=== PATIENT | female | born 1980 | race Caucasian/White ===

== ENCOUNTER → 2018-01-21 09:46 | Outpatient (CLI) | payer BC, SELFPAY ==
--- NOTE | 2018-01-21 10:21 | DI.MG.S_ITS ---
Patient Name: JACQUE HUMMEL date: 1980 Sex: F Attending Physician: Avinash Indications: Date: 01/21/2018 10:21 At the request of: MARIKA TIJERINA Procedure: MM diagnostic mammo BI BILATERAL DIGITAL DIAGNOSTIC MAMMOGRAM 3D/2D: 01/21/2018 CLINICAL: Palpable left breast lump. Baseline exam. No prior exams were available for comparison. The tissue of both breasts is extremely dense, which lowers the sensitivity of mammography. There is a triangular marker overlying the upper outer left breast at the site of the patient's palpable concern. There is no underlying mass or abnormality identified. There is an oval circumscribed mass measuring 1.0 cm in greatest diameter at the 9-10 o'clock position, 3- 4 cm from the nipple, at middle depth. No significant masses, calcifications, or other findings are seen in either breast. IMPRESSION: INCOMPLETE: NEEDS ADDITIONAL IMAGING EVALUATION 1) There is no underlying mass or abnormality identified in the upper outer left breast at the site of the patient's palpable concern. Recommend targeted left breast ultrasound for further evaluation. 2) Oval circumscribed mass measuring 1.0 cm in greatest diameter in the right breast at the 9-10 o'clock position, 3-4 cm from the nipple, at middle depth. Recommend targeted right breast ultrasound for further evaluation. This exam was interpreted at Station ID: [id number]. NOTE: For mammograms, a report in lay terms will be sent to the patient. Approximately 15% of breast malignancies will not be visualized mammographically. In the management of a palpable breast mass, a negative mammogram must not discourage biopsy of a clinically suspicious lesion. Electronically Signed By: George Munson M.D. ecl/:01/22/2018 12:13:17 Entry: - 01/22/2018 12:13:17 Continued Report - Page 2 of 2 Patient Name: JACQUE HUMMEL date: 1980 Sex: F Attending Physician: Avinash Indications: Date: 01/21/2018 10:21 At the request of: MARIKA TIJERINA Procedure: MM diagnostic mammo BI letter sent: Need Ultrasound ACR BI-RADS Category 0: Incomplete [id number]
== END ==
PROVIDERS: Family Provider Family Medicine; PCP Family Medicine; Visit Provider Family Medicine
DX: R92.8 Other abnormal and inconclusive findings on diagnostic imaging of breast (principal); N63.11 Unspecified lump in the right breast, upper outer quadrant
CPT/HCPCS: 77066; G0279

== ENCOUNTER → 2018-01-24 10:42 | Outpatient (CLI) | payer BC, SELFPAY ==
--- NOTE | 2018-01-24 10:43 | DI.US.S_ITS ---
ULTRASOUND OF LEFT BREAST: 01/24/2018 CLINICAL: Palpable left breast lump and focal pain. Comparison is made to exam dated: 01/21/2018 [facility]. Real-time and Doppler ultrasound of the left breast were performed. Medeiros scale images of the real-time examination were reviewed. Targeted ultrasound was performed in the region of the patient's reported palpable abnormality in the upper outer left breast. No underlying breast mass or abnormality is identified. IMPRESSION: NEGATIVE Negative ultrasound evaluation of the area of the patient's reported palpable abnormality in the upper outer left breast. Recommend clinical follow-up for further evaluation and management of the patient's reported symptoms. Return to annual screening mammography is also recommended. This exam was interpreted at Station ID: [id number]. Electronically Signed By: George Munson M.D. ecl/:01/24/2018 18:36:21 letter sent: Clinical Evaluation Ultrasound BI-RADS: 1 Negative
--- NOTE | 2018-01-24 10:43 | DI.US.S_ITS ---
ULTRASOUND OF RIGHT BREAST: 01/24/2018 CLINICAL: Patient returns for additional imaging over a suspected mass in the right breast. Comparison is made to exam dated: 01/21/2018 [facility]. Real-time and Doppler ultrasound of the right breast were performed. Medeiros scale images of the real-time examination were reviewed. There is a benign 0.8 cm x 0.6 cm x 0.5 cm lymph node in the right breast at 10 o'clock 6 cm from the nipple with normal hilar vascularity on Doppler ultrasound. This correlates with diagnostic mammography findings of 01/21/2018. IMPRESSION: BENIGN Benign intramammary lymph node correlating with finding observed on comparison diagnostic mammography of 01/21/2018. There is no sonographic evidence of malignancy in the right breast. Return to annual mammogram screening schedule is recommended. This exam was interpreted at Station ID: [id number]. Electronically Signed By: George Munson M.D. ecl/:01/24/2018 18:39:48 letter sent: Normal Exam Ultrasound BI-RADS: 2 Benign
== END ==
PROVIDERS: Family Provider Family Medicine; PCP Family Medicine; Visit Provider Family Medicine
DX: R92.8 Other abnormal and inconclusive findings on diagnostic imaging of breast (principal); N63.21 Unspecified lump in the left breast, upper outer quadrant; N63.11 Unspecified lump in the right breast, upper outer quadrant; N64.4 Mastodynia
CPT/HCPCS: 76642

== ENCOUNTER → 2019-09-05 14:56 | Outpatient (CLI) | payer OTHER, SELFPAY ==
--- NOTE | 2019-09-05 | DI.MG.S_ITS ---
BILATERAL DIGITAL SCREENING MAMMOGRAM 3D/2D WITH CAD: 09/05/2019 CLINICAL: Routine screening. Comparison is made to exam dated: 01/21/2018 [facility]. The tissue of both breasts is heterogeneously dense. This may lower the sensitivity of mammography. Current study was also evaluated with a Computer Aided Detection (CAD) system. No significant masses, calcifications, or other findings are seen in either breast. There has been no significant interval change. IMPRESSION: NEGATIVE There is no mammographic evidence of malignancy. A 1 year screening mammogram is recommended. This exam was interpreted at Station ID: [id number]. NOTE: For mammograms, a report in lay terms will be sent to the patient. Approximately 15% of breast malignancies will not be visualized mammographically. In the management of a palpable breast mass, a negative mammogram must not discourage biopsy of a clinically suspicious lesion. Electronically Signed By: Fabiano palma/benitez:09/05/2019 17:00:23 letter sent: Normal Exam ACR BI-RADS Category 1: Negative [id number]
== END ==
PROVIDERS: Family Provider Family Medicine; PCP Family Medicine; Referring Provider Family Medicine; Visit Provider Family Medicine
DX: Z12.31 Encounter for screening mammogram for malignant neoplasm of breast (principal)
CPT/HCPCS: 77063; 77067

== ENCOUNTER → 2020-08-26 08:44 | Outpatient (CLI) | payer OTHER, SELFPAY ==
[2020-08-26 10:58] LABS: Alanine Aminotransferase 21 IU/L (<35); Albumin Globulin Ratio 1.4 (1.0-2.8); Alkaline Phosphatase 71 U/L (38-126); Aspartate Aminotransferase 24 IU/L (14-36); Bilirubin Total 0.5 mg/dL (0.2-1.3); Blood Urea Nitrogen 11 mg/dL (7-17); Calcium 8.8 mg/dL (8.4-10.2); Carbon Dioxide 28 mmol/L (22-32); Chloride 107 mmol/L (98-107); Cholesterol 200 mg/dL (140-199); Estimated Glomerular Filt Rate > 60.0 mL/min (>60); Globulin 2.9 g/dL (1.7-4.1); Glucose 96 mg/dL (70-100); HDL Cholesterol 46 mg/dL (40-60); HEMOLYSIS < 15 (0-50); LDL Cholesterol Calculated 125 mg/dL (<100); Potassium 4.3 mmol/L (3.4-5.1); Sodium 136 mmol/L (137-145); Total Protein 6.9 g/dL (6.3-8.2); Triglycerides 145 mg/dL (35-150)
== END ==
PROVIDERS: Family Provider Family Medicine; PCP Family Medicine; Referring Provider Family Medicine; Visit Provider Family Medicine
DX: E66.9 Obesity, unspecified (principal)
CPT/HCPCS: 36415; 80053; 80061

== ENCOUNTER → 2020-09-06 12:11 | Outpatient (CLI) | payer OTHER, SELFPAY ==
--- NOTE | 2020-09-06 12:12 | DI.MG.S_ITS ---
BILATERAL DIGITAL SCREENING MAMMOGRAM 3D/2D WITH CAD: 09/06/2020 CLINICAL: Routine screening. Comparison is made to exams dated: 09/05/2019 mammogram and 01/21/2018 mammogram - [facility]. The tissue of both breasts is heterogeneously dense. This may lower the sensitivity of mammography. Current study was also evaluated with a Computer Aided Detection (CAD) system. No significant masses, calcifications, or other findings are seen in either breast. There has been no significant interval change. IMPRESSION: NEGATIVE There is no mammographic evidence of malignancy. A 1 year screening mammogram is recommended. This exam was interpreted at Station ID: [id number]. NOTE: For mammograms, a report in lay terms will be sent to the patient. Approximately 15% of breast malignancies will not be visualized mammographically. In the management of a palpable breast mass, a negative mammogram must not discourage biopsy of a clinically suspicious lesion. Electronically Signed By: Fabiano palma/benitez:09/06/2020 17:49:19 letter sent: Normal Exam ACR BI-RADS Category 1: Negative [id number]
--- NOTE | 2020-09-06 12:12 | DI.US.S_ITS ---
PROCEDURE: US PELVIC COMPLETE INDICATIONS: right pelvic pain, h/o ovarian cysts TECHNIQUE: Real-time scanning was performed of the pelvic organs, with image documentation. Additional endovaginal scanning was necessary due to incomplete visualization of the adnexal and endometrial structures by transabdominal scanning. COMPARISON: [facility], US, PELVIC COMPLETE, 02/16/2016, 9:09. FINDINGS: Uterus: Surgically absent Ovaries: Not well seen bilaterally. The appendix is not well seen sonographically Other: No pathologic free abdominal or pelvic fluid. IMPRESSION: The ovaries and appendix are not well visualized sonographically Dictated by: Van Berumen M.D. on 09/06/2020 at 16:20 Approved by: Van Berumen M.D. on 09/06/2020 at 16:21
== END ==
PROVIDERS: Family Provider Family Medicine; PCP Family Medicine; Referring Provider Family Medicine; Visit Provider Family Medicine
DX: Z12.31 Encounter for screening mammogram for malignant neoplasm of breast (principal); R10.2 Pelvic and perineal pain; Z90.710 Acquired absence of both cervix and uterus
CPT/HCPCS: 76830; 76856; 77063; 77067

== ENCOUNTER → 2021-11-04 08:55 | Outpatient (CLI) | payer OTHER, SELFPAY ==
[2021-11-04 11:37] LABS: COVID19 -Nasal RAPID Negative (Negative)
== END ==
PROVIDERS: Family Provider Family Medicine; PCP Family Medicine; Visit Provider Family Medicine Sleep Medicine
DX: Z20.822 Contact with and (suspected) exposure to COVID-19 (principal)
CPT/HCPCS: 87635; C9803

== ENCOUNTER 2021-11-07 06:38 | Day surgery (SDC) | payer OTHER, SELFPAY ==
[2021-11-07 07:22] VITALS: BMI 29.2
[2021-11-07] MEDS: SODIUM CHLORIDE 0.9% 1,000 ML 84 ML IV (07:40)
[2021-11-07 07:42] VITALS: BP 124/80; PULSE 91; RESP 16; TEMP 36.6; O2SAT 98
--- NOTE | 2021-11-07 08:05 | P.HP_ITS ---
History of Present Illness History of Present Illness Date Patient Seen: 11/07/21 Time Patient Seen: 08:05 Chief complaint: SDC Narrative: I reviewed Dr. Angela's recent note. No significant changes. Patient History Medical History Ankle pain (~2014) Carpal tunnel syndrome (~1997) Chicken pox (~1982) Heavy menstrual period History of chickenpox (~1982) History of migraine (~1989) Irregular menstrual cycle Kidney infection (~1994) Ovarian cyst (~2008) Painful menstrual periods Shoulder pain (~2015) Surgical History Anesthesia History of third molar tooth extraction Status post laparoscopic supracervical hysterectomy (06/28/15) Family & Social History Family History Father Skin cancer Diabetes mellitus Heart disease Hypertension High cholesterol Mother Diabetes mellitus Cancer Stomach problems Grandfather Hypertension Stroke Grandmother Cancer Grandfather Heart disease Grandmother No problems noted. Brother No problems noted. Sister Stomach problems Social History: household members spouse other hiking Tobacco & Substance use: Smoking Status Former smoker alcohol intake current alcohol intake frequency a few times a month Substance Use Type does not use Meds Home Medications and Allergies Home Medications Medication Instructions Recorded Confirmed Type ibuprofen 800 mg tablet 800 mg PO TID PRN #30 tab 04/01/20 11/07/21 Rx rizatriptan 10 mg disintegrating 10 mg PO ONCE PRN #12 tab 10/28/21 11/07/21 Rx tablet semaglutide (Ozempic) 0.75 mg SUBCUT QWEEK 11/07/21 11/07/21 History Allergies Allergy/AdvReac Type Severity Reaction Status Date / Time Penicillins [PENICILLINS] AdvReac Intermediate NAUSEA, Verified 11/07/21 07:22 VOMITING DIARRHEA TAPE ADHESIVES Allergy Severe rash Uncoded 10/19/20 10:36 Review of Systems Review of Systems ROS: Yes All systems reviewed with the patient and are negative except as otherwise documented Exam Vital Signs (past 8 hours): - 11/07/21 07:42 Temperature 97.9 F Pulse Rate 91 H Respiratory Rate 16 Blood Pressure 124/80 Pulse Oximetry 98 Oxygen Delivery Method Room Air Const General: cooperative and comfortable Orientation: alert [facility] Head: normocephalic Ears: external ears normal Nose: external nose normal Face and sinus: normal facial exam Mouth: oral mucosae normal Eyes General: appearance normal, both eyes and all related structures Neck Neck: normal visual inspection Chest Chest: normal inspection of the chest Resp Effort & Inspection: normal respiratory effort Cardio Rate: regular rate GI Inspection: normal to inspection Skin General: no rashes or lesions noted and No jaundice Neuro General: patient alert and moves all extremities Cognition: normal cognition Speech: speech normal Extrem General: no pedal edema Psych Appearance: grossly normal Assessment & Plan Assessment & Plan narrative: 41-year-old female with difficulty with constipation over the last 2 or 3 years. There is a family history of colon polyps in her dad and colon cancer and an aunt. Colonoscopy is pursued today. Time Spent With Patient Critical Care time: I spent a total of [] minutes of critical care time on this patient's care today; this time is exclusive of procedural time.
--- NOTE | 2021-11-07 08:07 | PM.PREOP ---
Pre-operative Note COVID-19 COVID-19 status: Negative Result date/Date tested (Pos, Neg/Pending): 11/04/21 Criteria for continued procedure: Possibility delay results in more complex future surgery or treatment Interval Note History & Physical reviewed/Exam performed by Physician: Yes Changes to H&P: No ASA Class (for procedural sedation): II
--- NOTE | 2021-11-07 08:31 | PM.OP.COLON ---
Operative Date/Time/Diagnoses Date of procedure: 11/07/21 Time of procedure: 08:31 Pre-op diagnosis: Constipation family history of colon polyps in her father and colon cancer in a second-degree relative Post-op diagnosis: same Procedure & Clinicians Study performed: Colonoscopy Same procedure as scheduled: Yes Indications: Constipation family history of colon polyps in her father and colon cancer in a second-degree relative Surgeon: Anders Tobias Procedure Notes SCOAP/Timeout: Done Procedure in detail: After the risks and benefits were explained, written and verbal informed consent was obtained. The patient was brought into the procedure room and placed into the left lateral decubitus position. Please see nurse book sewing machine operator notes for sedation details. Digital rectal examination was accomplished. The scope was introduced into the patient and advanced under direct visualization to the cecum as identified by the appendiceal orifice and ileocecal valve. The scope was slowly withdrawn to carefully examine the mucosa for any defects or lesions. Comprehensive imaging was accomplished throughout the rectum including the dentate line. The colon was decompressed, the scope was then removed from the patient who tolerated the procedure well. Pediatric colonoscope Bowel prep adequate Scope withdrawal time: 9 minutes Sedation minutes: 15 Specimen(s): none sent Complications: none Impression: Patient had a slightly tortuous sigmoid colon and this rendered navigation through this region slightly challenging. No obstructing pathology no significant polyps mass lesions or inflammatory features. The terminal ileum was interrogated and appeared visually normal. Endoscopic diagnosis Visually normal colonoscopy Post-procedure Plan for aftercare: 1. Fiber based bowel regimen is emphasized. 2. Repeat colonoscopy in 10 years time. 3. Follow-up GI clinic any time as needed Disposition: PACU
[2021-11-07 08:33] VITALS: BP 123/61; PULSE 77; RESP 14; TEMP 36.3; O2SAT 99
[2021-11-07 08:38] VITALS: BP 118/61; PULSE 86; RESP 15; O2SAT 100
[2021-11-07 08:44] VITALS: BP 94/47; PULSE 93; RESP 16; O2SAT 100
[2021-11-07 08:49] VITALS: BP 199/72; PULSE 90; RESP 12; O2SAT 100
[2021-11-07 08:55] VITALS: BP 120/77; PULSE 86; RESP 15; TEMP 36.2; O2SAT 100
== END 2021-11-07 09:10 | disposition home or self-care (01) ==
PROVIDERS: Family Provider Family Medicine; PCP Obstetrics & Gynecology; Referring Provider Internal Medicine Gastroenterology; Visit Provider Internal Medicine Gastroenterology
PROC: 0DJD8ZZ Inspection of Lower Intestinal Tract, Via Natural or Artificial Opening Endoscopic (ICD-10-PCS; CPT 45378; principal; 2021-11-07 08:00)
DX: K59.00 Constipation, unspecified (principal); Z83.71 Family history of colonic polyps
CPT/HCPCS: 45378; J2704